=== PATIENT | male | born 1935 | race Caucasian/White ===

== ENCOUNTER 2021-07-11 14:50 | Emergency (ER) | payer MEDICARE, SELFPAY ==
[2021-07-11 14:51] VITALS: BP 106/76; PULSE 94; RESP 16; TEMP 36.3; O2SAT 98; BMI 24.9
--- NOTE | 2021-07-11 15:27 | EDS_ITS ---
HPI History of Present Illness Chief Complaint: Cellulitis Detail of Chief Complaint: Swelling of right arm x2 days Informant: patient Narrative Narrative: Patient presents to the emergency department complaint of swelling to the right arm x2 days. Patient sister felt that maybe the arm was warmer than the opposite side. Patient [facility] and treated for Covid and pneumonia. At one point he had infiltration of his IV into the right arm and became quite swollen and painful. That eventually resolved. Patient denies any fevers or chills or sweats. He denies chest pain. 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 [facility] Medical History (Updated 07/11/21 @ 16:[address] Giovani Mullen, DO) Pulmonary embolism Home Medications hydrocodone-acetaminophen 1 - 2 tab PO Q4H PRN PRN #12 tablet 03/06/14 [Rx Last Taken Unknown] Allergy/AdvReac Type Severity Reaction Status Date / Time bee venom protein (honey bee) Allergy Anaphylaxis Verified 07/11/21 14:52 Social History Smoking Status: Never smoker ROS ROS ED Constitutional Constitutional ED: Reports systems reviewed and no addt'l complaints, except as documented; Denies body ache(s), change in weight or chills Eyes Eyes: Denies acute decrease in peripheral vision, change in vision, double vision or loss of vision ENT ENT ED: Reports none; Denies ear pain, lip swelling, loss taste/smell, neck pain, otalgia or sore throat Cardiovascular Cardiovascular: Reports none; Denies abdominal pain, chest pain with activity, leg edema, lightheadedness, palpitations, rapid heart rate or syncope Respiratory/Chest Respiratory/Chest: Reports none; Denies change in mental status, dry cough, dyspnea, hemoptysis, shortness of breath at rest or shortness of breath with exertion Gastrointestinal Gastrointestinal: Reports none; Denies abdominal pain, change in stool character, diarrhea, hematemesis, hematochezia, melena, rectal bleeding or vomiting Genitourinary Genitourinary ED: Reports none; Denies abdominal discomfort, anuria, dysuria, genital pain or polyuria Musculoskeletal Musculoskeletal: Reports none and other Details: Right arm swelling ; Denies arthralgias, back pain, difficulty walking, extremity pain, muscle weakness or myalgias Integumentary Reports none; Denies abscess or rash Neurologic Neurologic: Reports none; Denies abnormal gait, confusion, focal weakness, frequent falls, headache(s), loss of vision, numbness, paresthesias, radicular pain, vertigo or weakness Psychiatric Psychiatric: Reports systems reviewed and no addt'l complaints, except as documented and none; Denies behavioral changes, confusion, difficulty concentrating, hallucinations, suicidal ideation, tactile hallucinations or v isual hallucinations Endocrine Endocrinology: Denies none, cold intolerance, excessive sweating, fatigue or heat intolerance Hematologic/Lymphatic Hematologic/Lymphatic: Reports none; Denies anemia, easy bleeding or easy bruising Allergic/Immunologic Allergic/Immunologic ED: Denies as per HPI, none, lip swelling, mouth swelling, throat swelling, tongue swelling or hives EXAM Physical Exam Const Vital Signs: 07/11/21 14:51 Temperature 97.3 F L Temperature Source Temporal Pulse Rate 94 Respiratory Rate 16 Blood Pressure 106/76 Blood Pressure Mean 86 Pulse Ox 98 Oxygen Delivery Method Room Air Positive well nourished and well developed General Appearance ED: well developed and NAD HEENT Reports TM's clear and moist mucous membranes normocephalic and atraumatic; Negative for trauma or tenderness Tympanic Membrane ED: Yes TM's clear Eyes PERRL and EOMs intact bilaterally General Eye ED: Negative for pale conjunctiva or scleral icterus Neck no lymphadenopathy, supple and no JVD General: Negative for tenderness Chest Wall inspection of chest normal and palpation of chest normal Chest: Negative for tenderness Resp normal respiratory effort and clear to auscultation bilaterally Effort and Inspection: Negative for respiratory distress or pain with movement Auscultation: Negative for rhonchi, wheezes or diminished lung sounds Cardio regular rate, regular rhythm, S1 normal heart sound, S2 normal heart sound and no murmurs Peripheral Pulses: pulses 2+ throughout GI normal to inspection, nondistended, normoactive bowel sounds, soft to palpation, non-tender, non-distended and no masses Back/Spine no CVA tenderness and no thoracic nor lumbar tenderness Extremity Extremity Narrative: Evaluation of the right arm does reveal some edema of the forearm and dorsum of the hand compared to the opposite side. There is a darkish hue and discoloration to the forearm. There is no cellulitic changes or increased warmth when compared to the opposite side. He is neurovascularly intact with normal strength and normal range of motion of all digits. Normal pulses at the antecubital region as well as the radial and ulnar arteries. General Extremety ED: Negative for edema General Extremity: Negative for edema Neuro oriented x3, CN's II-XII intact bilaterally, no sensory deficits noted and gait normal Sensorium / Orientation: awake, alert, oriented to person, oriented to place and oriented to time Motor Exam: strength 5/5 throughout and strength abnormal Psych mental status grossly normal Skin no rashes or lesions noted and no wounds MDM MDM MDM Narrative Medical decision making narrative: Patient had an IV Hep-Lock established on arrival. Venous Doppler of right upper extremity obtained was negative for DVT. Lab work-up unremarkable. Patient did have some renal insufficiency with no values available for comparison. At this point etiology of the edema of the right arm is unclear. With him being on Eliquis possibly he may of bumped or bruised it causing it to swell. I advised on elevating the extremity. Patient to follow-up with primary care physician 5 to 7 days for repeat exam. Patient to return if worsening pain, chest pain, shortness of breath, fever, or condition should worsen anyway. Lab Data Attestation: I reviewed the patient's lab results. Labs: Laboratory Results - last 24 hr 07/11/21 07/11/21 15:36 15:36 WBC 6.4 RBC 3.35 L Hgb 10.1 L Hct 32.3 L MCV 96.4 H MCH 30.1 MCHC 31.3 L RDW Std Deviation 52.1 H RDW Coeff of [place]j 14.8 H Plt Count 275 MPV 9.4 Immature Gran % (Auto) 0.500 Neut % (Auto) 67.9 Lymph % (Auto) 15.5 L [place] % (Auto) 13.0 H Eos % (Auto) 2.5 Baso % (Auto) 0.6 Absolute Neuts (auto) 4.4 Absolute Lymphs (auto) 0.99 Nucleated RBC % 0 Sodium 138 Potassium 3.8 Chloride 103 Carbon Dioxide 32.0 Anion Gap 3 L BUN 19 H Creatinine 1.61 H Estim Creat Clear Calc 37.22 Est GFR (MDRD) Af Amer 53 L Est GFR (MDRD) Non-Af 43 L BUN/Creatinine Ratio 11.8 Glucose 103 Calcium 8.4 L Discharge Plan Triage Chief Complaint: Cellulitis ED Provider: Giovani Mullen Dx/Rx/DC Orders Clinical Impression: Edema of right upper arm, Renal insufficiency Instructions: ED Peripheral Edema, Unilateral Prescriptions: No Action hydrocodone-acetaminophen 1 TABLET tablet 1 - 2 tab PO Q4H PRN PRN (Reason: Pain) Qty: 12 RF: 0 Primary Care Provider: Yony Manzo Referrals: Yony Manzo MD [Primary Care Provider] - 5-7 Days Disposition Disposition: Home, Self Care
--- NOTE | 2021-07-11 15:27 | VDUE_ITS ---
Reason For Study: swelling Right Proximal Right jugular vein is spontaneous, widely patent, phasic, with no intraluminal echogenicity noted. Right subclavian vein is spontaneous, widely patent, phasic, with no intraluminal echogenicity noted. Right Lower Arm Right radial vein is compressible. Right ulnar vein is compressible. Right Arm Right axillary vein is spontaneous, patent, phasic, competent, compressible and demonstrates augmentation. Right brachial vein is compressible. Right cephalic vein is compressible. Right basilic vein is compressible. Prelim to the pt's RN. VL/Venous Duplex US, Unilateral Interpretation Summary No evidence for acute deep venous thrombosis[right] upper extremity with patent and compressible cephalic and basilic veins. Ordering Physician: Giovani Mullen Performed By: Paramjit Perrin RVT ?
[2021-07-11 15:48] LABS: Absolute Lymphocyte Count 0.99 X10^3/uL (0.83-4.51); Absolute Neutrophil Count 4.4 X10^3/uL (2.0-7.7); Basophil# 0.04 X10^3/uL; Basophil% 0.6 % (0-1); Eosinophil# 0.16 X10^3/uL; Eosinophils% 2.5 % (0-5); Hematocrit 32.3 % (40-54); Hemoglobin 10.1 g/dL (13.0-16.5); Lymphocyte # 0.99 X10^3/ul (0.83-4.51); Lymphocyte % 15.5 % (19-41); Mean Corp Hgb Conc 31.3 g/dL (32-36); Mean Corpuscular Hgb 30.1 pg (27.0-32.0); Mean Corpuscular Volume 96.4 fL (80-94); Mean Platelet Vol. 9.4 fl (6.2-12.0); Monocyte# 0.83 X10^3/uL; NRBC Flagged by Analyzer 0 % (0-5); Neutrophil # 4.35 X10^3/uL (2.7-7.7); Neutrophil % 67.9 % (47-70); Platelet Count 275 K/mm3 (150-450); RBC Distribution Width CV 14.8 % (11.6-14.6); RBC Distribution Width SD 52.1 fl (35.1-43.9); Red Blood Count 3.35 M/mm3 (4.6-6.2); White Blood Count 6.4 K/mm3 (4.4-11.0)
[2021-07-11 16:10] LABS: Anion Gap 3 (5-15); BUN 19 mg/dL (7-18); BUN/Creat Ratio 11.8 RATIO (10-20); Calcium,Total 8.4 mg/dL (8.5-10.1); Chloride 103 mmol/L (98-107); Creatinine, Serum 1.61 mg/dL (0.70-1.30); EST Glomerular Filtration Rate 43 mL/min (>60); Est Glom Filt Rate - Afr Amer 53 mL/min (>60); Estimated Creatinine Clearance 37.22 ml/min; Glucose 103 mg/dL (74-106); Potassium 3.8 mmol/L (3.5-5.1); Sodium Level 138 mmol/L (136-145)
[2021-07-11 16:26] VITALS: BP 110/75; PULSE 90; RESP 16; O2SAT 98
== END 2021-07-11 16:33 | disposition home or self-care (01) ==
PROVIDERS: Emergency Provider Emergency Medicine; PCP Family Medicine; Visit Provider Emergency Medicine
DX: R60.0 Localized edema (principal); M79.601 Pain in right arm; N28.9 Disorder of kidney and ureter, unspecified; Z86.711 Personal history of pulmonary embolism; Z86.16 Personal history of COVID-19; Z79.01 Long term (current) use of anticoagulants
CPT/HCPCS: 80048; 85025; 93971; 99283; A4216